=== PATIENT | male | born 1965 | race Caucasian/White ===

== ENCOUNTER 2016-08-21 18:01 | Emergency (ER) | payer OTHER ==
[~2016-08-21] VITALS: Ht 157.5 cm; Wt 70.8 kg
[~2016-08-21 18:01] MED LIST: DILAUDID2 MG PO; FLOMAX0.4 MG PO; GABAPENTIN100 MG PO; HUMIRA40 MG/0.1 IJ; HYDROMORPHONE HC2 MG PO; KEFLEX500 MG PO; LORTAB 5-325 M1 EACH PO; MORPHINE SULFAT15 M1 PO; NUCYNTA ER100 MG PO; PRILOSEC20 MG PO; SULFAZINE500 MG PO; TORADOL10 MG PO; ZOFRAN ODT4 MG PO
[2016-08-21 21:55] VITALS: BP 130/89
== END 2016-08-21 21:56 | disposition home or self-care (01) ==
LOC: EME 18:01
DX: F33.1 Major depressive disorder, recurrent, moderate (principal); F17.200 Nicotine dependence, unspecified, uncomplicated; Z87.442 Personal history of urinary calculi
CPT/HCPCS: 90839; 99281; 99285